=== PATIENT | male | born 1955 | race Caucasian/White ===

== ENCOUNTER → 2017-07-16 | Outpatient (CLI) | payer BC, OTHER ==
[~2017-07-16] MED LIST: ADVIL100 M2 PO; AVODART0.5 MG PO; COQ-10100 MG PO; FISHOIL OR; GLUCOSAMINE &1 EAC1 PO; HYDROCODONE-APA10 ML; IBUPROFEN 200200 M1 OR; LISINOPRIL10 MG OR; LORTAB 5 MG/5001 TAB PO; MULTIVITAMINS PO; PRILOSEC 20 MG20 MG OR; [UNRECOGNIZED DRUG - OTHER] PO
[2017-07-16 12:25] LABS: CREATININE 0.9 mg/dL (0.7-1.3)
== END ==
LOC: LABMALL 10:58
PROVIDERS: Family Medicine
DX: J90 Pleural effusion, not elsewhere classified (principal)